=== PATIENT | male | born 1945 | race Caucasian/White ===

== ENCOUNTER → 2020-01-07 | Day surgery (SDC) | payer MEDICARE ==
--- NOTE | 2020-01-05 19:59 | P.GSHP ---
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 He underwent TURBT. Follow up cystoscopy showed a small recurrence. HE was recommended to undergo a cystoscopy and TURBT. All risks and complications were explained to him including bleeding, perforation, need for additional treatments, UTI etc - Review of Systems All systems: negative - Constitutional Constitutional: Reports as per HPI - EENT Ears, nose, mouth and throat: Reports as per HPI - Cardiovascular Cardiovascular: Reports as per HPI - Respiratory Respiratory: Reports as per HPI - Gastrointestinal Gastrointestinal: Reports as per HPI - Genitourinary (Female) Genitourinary: Reports hematuria, Reports nocturia - Genitourinary (Male) Genitourinary: Reports as per HPI - Musculoskeletal Musculoskeletal: Reports as per HPI - Integumentary Integumentary: Reports as per HPI - Neurological Neurological: Reports as per HPI Past Medical History Past Medical History: Coronary Artery Disease (CAD), GERD/Reflux, Hyperlipidemia, Hypertension Additional Past Medical History / Comment(s): Bladder Ca-dx February 2019-no chemo or radiation, hx duodenal ulcer 2008,Rosales's esophagus,kidney stones History of Any Multi-Drug Resistant Organisms: None Reported Past Surgical History: Appendectomy, Heart Catheterization With Stent Additional Past Surgical History / Comment(s): kidney stones removed,cardiac stent x1 Past Anesthesia/Blood Transfusion Reactions: No Reported Reaction Additional Past Anesthesia/Blood Transfusion Reaction / Comment(s): no hx blood transfusion Date of Last Stent Placement:: 2014 Smoking Status: Former smoker - Past Family History Mother Family Medical History: No Reported History Medications and Allergies Home Medications Medication Instructions Recorded Confirmed Type Aspirin 81 mg PO DAILY 12/05/19 12/05/19 History Atorvastatin [Lipitor] 80 mg PO DAILY 12/05/19 12/05/19 History Clopidogrel [Plavix] 75 mg PO DAILY 12/05/19 12/05/19 History Ezetimibe [Zetia] 10 mg PO DAILY 12/05/19 12/05/19 History Glucosamine Sulfate 500 mg PO DAILY 12/05/19 12/05/19 History Krill Oil 500 mg PO DAILY 12/05/19 12/05/19 History Metoprolol Tartrate [Lopressor] 50 mg PO BID 12/05/19 12/05/19 History Multivitamins, Thera [Multivitamin 1 tab PO DAILY 12/05/19 12/05/19 History (formulary)] Omeprazole 20 mg PO HS 12/05/19 12/05/19 History Turmeric Root Extract [Turmeric] 500 mg PO DAILY 12/05/19 12/05/19 History Ubidecarenone [Co Q-10] 30 mg PO DAILY 12/05/19 12/05/19 History amLODIPine [Norvasc] 10 mg PO QAM 12/05/19 12/05/19 History Allergies Allergy/AdvReac Type Severity Reaction Status Date / Time No Known Allergies Allergy Verified 12/05/19 09:18 Surgical - Exam - General well developed, well nourished, no distress - Eyes PERRL - ENT no hearing loss, no congestion - Neck no masses, trachea midline - Respiratory normal respiratory effort, clear to auscultation - Abdomen Abdomen: soft, non tender, no guarding, no rigid, no rebound Assessment and Plan (1) Bladder cancer Status: Acute Code(s): C67.9 - MALIGNANT NEOPLASM OF BLADDER, UNSPECIFIED SNOMED Code(s): 997609498 (2) Hematuria Status: Acute Code(s): R31.9 - HEMATURIA, UNSPECIFIED SNOMED Code(s): 77415142 Plan: Transurethral resection of bladder tumor Time with Patient: Greater than 30
[2020-01-06 08:58] VITALS: BMI 26.6
[~2020-01-07] MED LIST: ALFENTANIL 500 MCG/ML 2 ML AMP IV ONE; DEXAMETHASONE SOD PHOSPHATE 10 MG/ML 1 ML VIAL IV ONE; HYDROmorphone 0.5 MG/0.5 ML SYRINGE IVP PRN; LACTATED RINGERS 1,000 ML IV ONE; LACTATED RINGERS 1,000 ML IV SCH; LIDOCAINE 1% (10MG/ML) FOR IV START INTRADERMA PRN; LIDOCAINE 1% INJ 10MG/ML (20 ML MDV) ONE; MIDAZOLAM 2 MG/2 ML VIAL ONE; ONDANSETRON 4 MG/2 ML VIAL IVP ONE; PROPOFOL 10 MG/ML 20 ML VIAL IV ONE; SCOPOLAMINE 1.5MG/72HR PATCH TRANSDERM ONE; SUCCINYLCHOLINE CHLORIDE 100 MG/5 ML SYR IV ONE; ePHEDrine SULFATE/0.9% NACL/PF 50 MG/5 ML SYRINGE IV ONE; fentaNYL (PF) 50 MCG/ML 2 ML AMP ONE
[2020-01-07 10:24] LABS: Calcium 9.3 mg/dL (8.4-10.2); Potassium 4.4 mmol/L (3.5-5.1)
[2020-01-07 10:44] LABS: Basophils # (A) 0.1 k/uL (0-0.2); Basophils % (A) 1 %; Eosinophils # (A) 0.3 k/uL (0-0.7); Eosinophils % (A) 4 %; HCT 41.5 % (39.0-53.0); HGB 14.4 gm/dL (13.0-17.5); Lymphocytes # (A) 1.5 k/uL (1.0-4.8); Lymphocytes % (A) 20 %; MCH 33.1 pg (25.0-35.0); MCHC 34.7 g/dL (31.0-37.0); MCV 95.6 fL (80.0-100.0); Monocytes # (A) 0.6 k/uL (0-1.0); Monocytes % (A) 8 %; Neutrophils # (A) 4.9 k/uL (1.3-7.7); Neutrophils % (A) 64 %; Platelet Count 222 k/uL (150-450); RBC 4.35 m/uL (4.30-5.90); RDW 13.3 % (11.5-15.5); WBC 7.6 k/uL (3.8-10.6)
[2020-01-07 11:34] VITALS: TEMP 96.8
--- NOTE | 2020-01-07 11:39 | P.OP ---
Date of Procedure: 01/07/20 Preoperative Diagnosis: #1 bladder cancer #2 hematuria Postoperative Diagnosis: Bladder cancer Procedure(s) Performed: Transurethral resection of bladder tumor large Anesthesia: CALI Surgeon: Romana Rosario Estimated Blood Loss (ml): 5 IV fluids (ml): 200 Urine output (ml): 50 Pathology: other (bladder tumor) Condition: stable Disposition: PACU Indications for Procedure: Patient has a history of bladder tumor that was resected 6 months back. He was found to have a recurrent tumor on surveillance cystoscopy Operative Findings: 2 cm bladder tumor at the dome of the bladder anteriorly. Elevated bladder neck with nonobstructive lateral lobes. Both ureteral orifices were normal. Scar of previous resection was seen and normal. No evidence of any CIS Description of Procedure: Deshaun elected to have a transurethral resection of bladder tumor for his recurrent bladder lesion. All risks and complications were explained to him including bleeding urinary tract infection and perforation and need for additional procedures. A written informed consent was obtained. He was taken to the OR administered general anesthesia and placed in lithotomy position. Parts were prepared painted and draped. A 22-[place] cystoscope was used to gain access to the bladder. Anterior urethra and bulbar urethra were normal. Prostate were nonobstructive and bladder neck was elevated. Inspection of the bladder revealed a 2 cm tumor anteriorly at the dome. Rest of the bladder was normal. Both ureteral orifices were normal. Urine effluxed from the orifices was clear. A 25-[place] resectoscope was assembled and a bipolar working element was obtained. The meatus was dilated and the resectoscope was introduced into the bladder. There was some difficulty accessing the tumor because of its anterior location. Using suprapubic pressure by an life science research assistant the tumor was located and resected using cutting Bovie. The specimen was extracted and sent for pathology. Using coagulation current the margins of the resection were thoroughly coagulated. Hemostasis was reconfirmed A 16-[place] Wagner catheter was placed and the patient was taken to recovery in stable condition
[2020-01-07 12:22] VITALS: BP 167/79; PULSE 73; RESP 17
== END | disposition home or self-care (01) ==
LOC: OR 08:50
PROVIDERS: ATTEND Urology
DX: C67.9 Malignant neoplasm of bladder, unspecified (principal); K21.9 Gastro-esophageal reflux disease without esophagitis; I25.10 Atherosclerotic heart disease of native coronary artery without angina pectoris; Z87.11 Personal history of peptic ulcer disease; I10 Essential (primary) hypertension; Z87.442 Personal history of urinary calculi; Z95.5 Presence of coronary angioplasty implant and graft; Z98.890 Other specified postprocedural states; Z87.891 Personal history of nicotine dependence; Z79.02 Long term (current) use of antithrombotics/antiplatelets; Z79.82 Long term (current) use of aspirin; Z79.899 Other long term (current) drug therapy
CPT/HCPCS: 80048; 85025; 88307; 87635; 52234; J2250; J1100; J0690; J2405; J2001; J3010; J0330; J2704